=== PATIENT | female | born 1975 | race Caucasian/White ===

== ENCOUNTER 2017-01-11 16:46 | Emergency (ER) | payer OTHER ==
[2017-01-11 17:01] VITALS: BP 142/91
[2017-01-11] MEDS ORDERED: NORCO 7.5/325 PO ONE (19:07)
[2017-01-11] MEDS ORDERED: FLEXERIL PO ONE (19:07)
[2017-01-11] MEDS ORDERED: TORADOL IM ONE (19:07)
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
== END 2017-01-11 22:26 | disposition home or self-care (01) ==
LOC: ED 16:46
DX: M54.9 Dorsalgia, unspecified (principal); M54.2 Cervicalgia; M25.561 Pain in right knee; V43.52XA Car driver injured in collision with other type car in traffic accident, initial encounter; Y93.89 Activity, other specified; Y99.8 Other external cause status; Y92.89 Other specified places as the place of occurrence of the external cause
CPT/HCPCS: 72040; 72070; 72100; 73562; 81025; 96372; 99283; J1885